=== PATIENT | female | born 1955 | race Caucasian/White ===

== ENCOUNTER 2024-05-20 13:31 | Outpatient (CLI) | payer MEDICARE, OTHER | END 2024-05-20 13:32 | disposition home or self-care (01) | LOC: BICRAD 13:31 | PROVIDERS: ATTEND Family Medicine | DX: R05.3 Chronic cough (principal) | CPT/HCPCS: 71046 ==

== ENCOUNTER 2024-06-26 08:36 | Outpatient (CLI) | payer MEDICARE, OTHER ==
[2024-06-26] MEDS ORDERED: Iopamidol 370 76% 100 ML VIAL ONE (14:13)
== END 2024-06-26 08:37 | disposition home or self-care (01) ==
LOC: CT 08:36
PROVIDERS: ATTEND Otolaryngology Plastic Surgery within the Head & Neck
DX: J32.9 Chronic sinusitis, unspecified (principal); R49.0 Dysphonia; Z98.890 Other specified postprocedural states
CPT/HCPCS: 70486; 70491; 82565; Q9967

== ENCOUNTER 2025-07-19 14:09 | Outpatient (CLI) | payer MEDICARE, OTHER | END 2025-07-19 14:10 | disposition home or self-care (01) | LOC: BICRAD 14:09 | PROVIDERS: ATTEND Family Medicine | DX: M25.551 Pain in right hip (principal); M25.552 Pain in left hip; M54.6 Pain in thoracic spine; M47.814 Spondylosis without myelopathy or radiculopathy, thoracic region | CPT/HCPCS: 72072 ==